=== PATIENT | female | born 1955 ===

== ENCOUNTER 2021-12-24 18:36 | Emergency (ER) | payer MEDICARE, OTHER, SELFPAY ==
[2021-12-24 18:45] VITALS: BP 148/89; PULSE 94; RESP 18; TEMP 36.6; O2SAT 96
[2021-12-24 19:01] VITALS: BP 143/82; PULSE 101; O2SAT 97
--- NOTE | 2021-12-24 19:05 | NUR.NOTE ---
Nursing Note: Patient checked blood glucose on own. Blood sugar level 145 around this time.
--- NOTE | 2021-12-24 19:11 | W.ED.GENAD ---
Discharge Plan Disposition Patient Disposition: HOME Condition: Stable Discharge Details Clinical Impression: Dermatitis Primary Care Provider: Unknown,Unknown ED Provider: Rigo Rodriguez Home Meds and New Rx's Prescriptions: New prednisone 20 mg tablet 20 mg PO DAILY 4 Days Qty: 4 0RF No Action atorvastatin 40 mg Tablet 40 mg PO QHS metformin 1,000 mg Tablet 1,000 mg PO DAILY omeprazole 20 mg Capsule,Delayed Release(Dr/Ec) 20 mg PO DAILY aspirin 81 mg Tablet 81 mg PO DAILY lisinopril 5 mg Tablet 5 mg PO DAILY Tresiba FlexTouch U-100 100 unit/mL (3 mL) Insulin Pen 45 unit SUBCUT DAILY Discharge Instructions Instructions: Dermatitis (ED) Additional Instructions: You may continue to use [id number]-mis-jalsivr Benadryl or Zyrtec as needed for itching. Please use [id number] eczema cream this will also help. If you have any new or significant worsening of symptoms including swelling of lips tongue mouth, difficulty breathing, or any respiratory symptoms of concern please return immediately to the emergency department for reassessment. Given possible medication reaction please follow-up with your primary care provider for further discussion of medication. Referrals: Primary Care Provider [Outside] - 12/26/21 (Please call your primary care office on Sunday for discussion of medication cessation or changes that may be attributing to your rash) Discharge Data Discharge Date/Time-TO BE ENTERED AT DEPARTURE: 12/24/21 19:49 Medical Decision Making Patient presenting to emergency department for chief complaint of rash. This started yesterday morning and she feels it is due to her new diabetic medication ozempic that she took on Sunday. Patient denies any difficulty breathing, swelling of lips tongue mouth, syncope, GI issues. Patient does state that she has been sensitive to these medications in the past. Physical exam shows a diffuse dermatitis mostly on the exposed areas of her skin including upper extremities, lower legs, face, and neck. No anaphylactoid type reactions or other body systems involved beyond dermatological findings. Will give patient histamine luca along with prednisone. Patient does state clear understanding to monitor her blood sugars which were in the 140s prior to arrival. At this time I see no evidence for need of epinephrine and close monitoring along with return and follow-up precautions were discussed. Did also discuss that patient is on lisinopril and this also could be a culprit but to have her consult with her primary care provider before stopping any of her medications. After discussion of diagnosis and plan of care patient has no further needs, questions, or concerns and states clear understanding to return to the emergency department for any worsening symptoms. This documentation was generated using [employer] system, please disregard any oddities of phrase or misspellings. HPI General Mode of arrival: ambulatory. Date/Time Provider Initiated Documentation: 12/24/21 18:51. Limitations to Documentation: no limitations. Information obtained by: patient and RN notes reviewed. History of Present Illness 66 year old F presents to the emergency department with the chief complaint of rash, described as mild and similar to prior episodes, Quality is described as other (denies pain), and is localized to the neck, upper extremity and lower extremity. Patient started experiencing this day(s) (1) and it has been constant. No relieving factors improve symptom(s), Medication worsens symptoms . Patient notes no other symptoms.. Patient did receive the following treatments prior to arrival, other (Benadryl ) Related Data Home Medications Medication Instructions Recorded Confirmed aspirin 81 mg tablet 81 mg PO DAILY 12/24/21 12/24/21 atorvastatin 40 mg tablet 40 mg PO QHS 12/24/21 12/24/21 insulin degludec 100 unit/mL (3 45 unit subcut DAILY 12/24/21 12/24/21 mL) subcutaneous pen (Tresiba FlexTouch U-100 insulin) lisinopril 5 mg tablet 5 mg PO DAILY 12/24/21 12/24/21 metformin 1,000 mg tablet 1,000 mg PO DAILY 12/24/21 12/24/21 omeprazole 20 mg capsule,delayed 20 mg PO DAILY 12/24/21 12/24/21 release prednisone 20 mg tablet 20 mg PO DAILY 4 days #4 tabs 12/24/21 Previous Rx's Medication Instructions Recorded prednisone 20 mg tablet 20 mg PO DAILY 4 days #4 tabs 12/24/21 Allergies Allergy/AdvReac Type Severity Reaction Status Date / Time erythromycin base Allergy Severe Anaphylaxis Unverified 12/24/21 19:07 liraglutide [From Victoza] Allergy Intermediate Skin Rash Unverified 12/24/21 19:07 semaglutide [From Rybelsus] Allergy Intermediate Nausea Unverified 12/24/21 19:07 canagliflozin [From Invokana] AdvReac Intermediate Other (See Unverified 12/24/21 19:07 Comment) General Stated Complaint: Allergic HANNA: 3 Review of Systems Constitutional Constitutional: Denies chills, Denies fever(s) and Denies poor appetite Eyes Eyes: Denies itchy eyes ENT Ears, Nose, Mouth, and Throat: Denies lip swelling, Denies sore throat, Denies throat swelling and Denies tongue swelling Cardiovascular Cardiovascular: Denies chest pain, Denies syncope and Denies dyspnea Respiratory Respiratory: Denies cough, Denies dyspnea and Denies wheezing Gastrointestinal Gastrointestinal: Denies abdominal pain, Denies nausea and Denies vomiting Musculoskeletal Musculoskeletal: Denies arthralgias and Denies joint swelling Integumentary/Breasts Skin/Breast: Reports as per HPI, Reports pruritus, Reports erythema and Reports rash Neurologic Neurologic: Denies syncope Allergic/Immunologic Allergic/Immunologic: Reports as per HPI, Denies itchy eyes, Denies lip swelling, Denies throat swelling, Denies tongue swelling and Denies wheezing PFSH All Active Problems (Updated 12/24/21 @ 19:31 by Rigo Rodriguez NP) Dermatitis (Acute) Social History Smoking/Tobacco Use Status: Never Smoking risk assessment performed?: Yes Alcohol Intake: current Alcohol Intake frequency: 0-2 drinks per day Alcohol type: wine Drug use: Occasionally Substance use type: marijuana Details: THC tincture in wine occassionally. Do you feel safe at home: Yes Do you feel safe in your relationship?: Yes Exam Const General: cooperative, healthy appearing, comfortable, no acute distress and not ill appearing Orientation: alert, awake and oriented x3 HENMT Head: normal to inspection and normocephalic General nose exam: external nose normal Face and sinus: normal facial exam Mouth: oral mucosae normal, lip normal, tongue normal, no audible dysphonia, no drooling and no trismus Throat: uvula midline and no peritonsillar masses Neck Neck: normal visual inspection, full ROM and no meningeal signs Resp Effort & Inspection: normal respiratory effort, able to speak in complete sentences and no stridor Auscultation: clear to auscultation bilaterally Cardio Rate: regular rate Rhythm: regular rhythm Heart Sounds: S1 normal and S2 normal Skin Rashes: rashes noted maculopapular rash diffuse multiple locations Wounds: no wounds Neuro General: patient alert, patient awake, patient oriented x3, gait normal and tone normal Course Vital Signs Vital signs: Vital Signs Temperature 36.6 C 12/24/21 18:45 Pulse 94 H 12/24/21 18:45 Respiratory Rate 18 12/24/21 18:45 Blood Pressure 148/89 H 12/24/21 18:45 Pulse Oximetry 96 12/24/21 18:45 Temperature 36.6 C 12/24/21 18:45 Temperature Source Temporal Artery Scan 12/24/21 18:45 Pulse 101 H 12/24/21 19:01 Respiratory Rate 18 12/24/21 18:45 Respiratory Effort Non-Labored 12/24/21 18:58 Respiratory Pattern Normal 12/24/21 18:58 Blood Pressure 143/82 H 12/24/21 19:01 Blood Pressure Position Sitting 12/24/21 18:45 Pulse Oximetry 97 12/24/21 19:01 Oxygen Delivery Method Room Air 12/24/21 19:01 Oxygen Flow Rate 0 12/24/21 19:01 PAWSS Have you Been Recently Intoxicated or Drunk Within the Last 30 days?: No Have you Ever Experienced Previous Episodes of Alcohol Withdrawal?: No Have you ever Experienced Withdrawal Seizures?: No Have you ever Experienced Delirium Tremens(DT)s?: No Have you ever undergone Alcohol Rehabilitation Treatment (i.e, inpt ot outpatient treatment programs)?: No Have you ever Experienced Blackouts?: No Have you ever Combined Alcohol with other Downers within the last 90 days?: No Have you ever Combined Alcohol with any other Substance of Abuse during the last 90 days?: No Positive Blood Alcohol level on Presentation? [PCS.BAL]: No Evidence of Increased Autonomic Activity (i.e. HR>120, tremor, sweating, agitation, nausea)?: No Result: 0
[2021-12-24] MEDS: Cetirizine 10 MG TAB PO (19:27)
[2021-12-24] MEDS: predniSONE 20 MG TAB PO (19:27)
[2021-12-24 19:47] VITALS: BP 132/78; PULSE 74; RESP 18; O2SAT 99
== END 2021-12-24 19:49 | disposition home or self-care (01) ==
PROVIDERS: Emergency Provider Nurse Practitioner Family
DX: L30.9 Dermatitis, unspecified (principal)
CPT/HCPCS: 99283; 99284; J7512